=== PATIENT | male | born 1950 | race Hispanic/Latino ===

== ENCOUNTER 2018-08-16 18:49 | Emergency (ER) | payer MEDICARE | END 2018-08-16 21:03 | disposition home or self-care (01) | LOC: EDH 18:49 | DX: S80.812A Abrasion, left lower leg, initial encounter (principal); E78.5 Hyperlipidemia, unspecified; I10 Essential (primary) hypertension; E11.9 Type 2 diabetes mellitus without complications; Z90.49 Acquired absence of other specified parts of digestive tract; W55.03XA Scratched by cat, initial encounter; Y93.89 Activity, other specified; Y92.89 Other specified places as the place of occurrence of the external cause; Y99.8 Other external cause status ==

== ENCOUNTER 2018-08-21 10:00 | Inpatient (IN) | payer MEDICARE ==
[~2018-08-21] VITALS: Ht 165.1 cm; Wt 74.4 kg
[2018-08-21 00:20] VITALS: BP 137/65
[2018-08-21 11:03] LABS: BASOPHILS % (AUTO) 0.3 % (0.0-5.0); EOSINOPHILS % (AUTO) 0.5 % (0.0-8.0); HEMATOCRIT 44.6 % (42-54); LYMPHOCYTES % (AUTO) 14.5 % (21.0-51.0); MEAN CORPUSCULAR HEMOGLOBIN 31.6 pg (27.0-33.0); MEAN CORPUSCULAR HGB CONC 34.5 g/dL (32.0-36.0); MEAN CORPUSCULAR VOLUME 91.7 fL (79-99); MONOCYTES % (AUTO) 10.3 % (3.0-13.0); NEUTROPHILS % (AUTO) 74.4 % (40.0-77.0); PLATELET COUNT (AUTO) 163 K/uL (130-400); RED BLOOD CELL COUNT(AUTO) 4.86 MIL/uL (4.50-6.20); RED CELL DISTRIBUTION WIDTH 12.7 % (11.0-15.5); WHITE BLOOD COUNT (AUTO) 8.1 K/uL (4.8-10.8)
[2018-08-21 11:19] LABS: CREATININE 0.9 mg/dL (0.5-1.5)
[2018-08-21 11:25] LABS: ALBUMIN 3.2 g/dL (3.5-5.0); BILIRUBIN,TOTAL 2.1 mg/dL (0.2-1.0); TOTAL PROTEIN, SERUM 8.1 g/dL (6.0-8.3)
[2018-08-21] MEDS ORDERED: HYDROCODONE/ACETAMINOPHEN 10/325 MG TAB ONE (11:32)
[2018-08-21] MEDS ORDERED: ZOSYN 3.375GM+NS 50ML 50 ML IV ONE (12:29)
[2018-08-21] MEDS ORDERED: SODIUM CHLORIDE 0.9% 100 ML IV ONE (12:29)
[2018-08-21] MEDS ORDERED: INSULIN HUMULIN R 100 UNIT/ML 3ML ONE (13:42)
[2018-08-21] MEDS ORDERED: SODIUM CHLORIDE 0.9% 10 ML VIAL IVP PRN (14:15)
[2018-08-21 19:25] VITALS: BP 142/58
[2018-08-21] MEDS ORDERED: PANT40TA25 PO (19:41)
[2018-08-21] MEDS ORDERED: GLIP10TA9 PO (19:41)
[2018-08-21] MEDS ORDERED: SERT50TA12 PO (19:41)
[2018-08-21] MEDS ORDERED: ATOR10 PO (19:41)
[2018-08-21] MEDS ORDERED: TAMS0.4C32 PO (19:41)
[2018-08-21] MEDS ORDERED: LISI30TA4 PO (19:41)
[2018-08-21] MEDS ORDERED: INVOK100TB PO (19:41)
[2018-08-21] MEDS: ZOSYN 3.375GM+NS 50ML 50 ML IV SCH (19:55)
[2018-08-21] MEDS: ACETAMINOPHEN 325 MG TAB PO PRN (19:56)
[2018-08-21] MEDS: INSULIN R PO SS1 SQ SCH (20:24)
[2018-08-22 00:11] VITALS: BP 137/65
[2018-08-22 04:20] VITALS: BP 128/67
[2018-08-22] MEDS: ZOSYN 3.375GM+NS 50ML 50 ML IV SCH ×3 (04:22→20:49)
[2018-08-22 04:36] LABS: HEMATOCRIT 41.2 % (42-54); MEAN CORPUSCULAR HGB CONC 35.2 g/dL (32.0-36.0); MEAN CORPUSCULAR VOLUME 90.9 fL (79-99); PLATELET COUNT (AUTO) 179 K/uL (130-400); RED BLOOD CELL COUNT(AUTO) 4.53 MIL/uL (4.50-6.20); RED CELL DISTRIBUTION WIDTH 12.5 % (11.0-15.5); WHITE BLOOD COUNT (AUTO) 7.5 K/uL (4.8-10.8)
[2018-08-22 04:52] LABS: CREATININE 0.8 mg/dL (0.5-1.5); POTASSIUM 3.5 mmol/L (3.5-5.1)
[2018-08-22] MEDS: ACETAMINOPHEN 325 MG TAB PO PRN (06:01)
[2018-08-22] MEDS: INSULIN R PO SS1 SQ SCH ×4 (06:03→20:57)
[2018-08-22 08:00] VITALS: BP 122/71
[2018-08-22] MEDS: TRAMADOL HCL 50 MG TABLET PO PRN (11:12)
[2018-08-22 12:00] VITALS: BP 144/68
[2018-08-22 16:00] VITALS: BP 146/68
[2018-08-22] MEDS: HYDROCODONE/ACETAMINOPHEN 7.5/325 MG TAB PO PRN (17:00)
[2018-08-22 19:25] VITALS: BP 134/69
[2018-08-22] MEDS ORDERED: POTASSIUM CHLORIDE 20MEQ/100ML 100 ML IV PRN ×2 (20:15)
[2018-08-22] MEDS ORDERED: POTASSIUM CHLORIDE 20 MEQ ERTAB PO PRN (20:15)
[2018-08-22] MEDS ORDERED: POTASSIUM CHLORIDE 10% ELIXIR 20 MEQ/15 ML UDCUP PO PRN (20:15)
[2018-08-22] MEDS ORDERED: LIDOCAINE HCL-MPF 1% 2ML VIAL IVP PRN (20:15)
[2018-08-22] MEDS: ATORVASTATIN CALCIUM 10 MG TABLET PO SCH (20:50)
[2018-08-23] VITALS (7 sets, daily range): BP systolic 115–140; BP diastolic 57–67
[2018-08-23] MEDS: HYDROCODONE/ACETAMINOPHEN 7.5/325 MG TAB PO PRN ×2 (00:19→08:32)
[2018-08-23] MEDS: ZOSYN 3.375GM+NS 50ML 50 ML IV SCH ×3 (03:52→20:52)
[2018-08-23 04:43] LABS: CREATININE 0.8 mg/dL (0.5-1.5); POTASSIUM 3.7 mmol/L (3.5-5.1)
[2018-08-23] MEDS: INSULIN R PO SS1 SQ SCH ×4 (06:23→20:56)
[2018-08-23] MEDS: PANTOPRAZOLE SODIUM 40 MG TABLET.DR PO SCH (08:33)
[2018-08-23] MEDS: ASPIRIN 325 MG TABLET PO SCH (08:33)
[2018-08-23] MEDS: LISINOPRIL 20 MG TABLET PO SCH (08:34)
[2018-08-23] MEDS: SERTRALINE HCL 50 MG TABLET PO SCH (08:34)
[2018-08-23] MEDS: TAMSULOSIN HCL 0.4 MG CAP.ER.24H PO SCH (08:34)
[2018-08-23] MEDS: GLIPIZIDE 5 MG TABLET PO SCH (08:35)
[2018-08-23] MEDS: **HM** INVOKANA 100MG PO SCH (08:36)
[2018-08-23] MEDS: TRAMADOL HCL 50 MG TABLET PO PRN (12:17)
[2018-08-23] MEDS: ATORVASTATIN CALCIUM 10 MG TABLET PO SCH (20:52)
[2018-08-24 03:00] VITALS: BP 125/59
[2018-08-24] MEDS: ZOSYN 3.375GM+NS 50ML 50 ML IV SCH (03:48)
[2018-08-24 04:01] LABS: EOSINOPHILS % (AUTO) 5.4 % (0.0-8.0); HEMATOCRIT 38.3 % (42-54); LYMPHOCYTES % (AUTO) 19.7 % (21.0-51.0); MEAN CORPUSCULAR HEMOGLOBIN 32.2 pg (27.0-33.0); MEAN CORPUSCULAR HGB CONC 35.6 g/dL (32.0-36.0); MEAN CORPUSCULAR VOLUME 90.4 fL (79-99); NEUTROPHILS % (AUTO) 65.9 % (40.0-77.0); PLATELET COUNT (AUTO) 201 K/uL (130-400); RED BLOOD CELL COUNT(AUTO) 4.24 MIL/uL (4.50-6.20); RED CELL DISTRIBUTION WIDTH 12.5 % (11.0-15.5); WHITE BLOOD COUNT (AUTO) 6.5 K/uL (4.8-10.8)
[2018-08-24 04:08] LABS: CREATININE 0.7 mg/dL (0.5-1.5); POTASSIUM 3.7 mmol/L (3.5-5.1)
[2018-08-24] MEDS: INSULIN R PO SS1 SQ SCH ×2 (06:09→12:24)
[2018-08-24 08:00] VITALS: BP 138/69
[2018-08-24] MEDS: **HM** INVOKANA 100MG PO SCH (09:00)
[2018-08-24] MEDS: HYDROCODONE/ACETAMINOPHEN 7.5/325 MG TAB PO PRN (09:04)
[2018-08-24] MEDS: LISINOPRIL 20 MG TABLET PO SCH (09:05)
[2018-08-24] MEDS: GLIPIZIDE 5 MG TABLET PO SCH (09:06)
[2018-08-24] MEDS: PANTOPRAZOLE SODIUM 40 MG TABLET.DR PO SCH (09:07)
[2018-08-24] MEDS: ASPIRIN 325 MG TABLET PO SCH (09:07)
[2018-08-24] MEDS: SERTRALINE HCL 50 MG TABLET PO SCH (09:07)
[2018-08-24] MEDS: TAMSULOSIN HCL 0.4 MG CAP.ER.24H PO SCH (09:07)
[2018-08-24 12:00] VITALS: BP 99/60
== END 2018-08-24 13:35 | disposition home or self-care (01) | DRG 603 ==
LOC: EDH 10:00 → EDHIP 13:34 → 3BH 17:55
PROVIDERS: ADMIT Family Medicine; ATTEND Family Medicine
PROC: 3E0234Z Introduction of Serum, Toxoid and Vaccine into Muscle, Percutaneous Approach (ICD-10-PCS; principal; 2018-08-24)
DX: L03.116 Cellulitis of left lower limb (principal); E11.65 Type 2 diabetes mellitus with hyperglycemia; I10 Essential (primary) hypertension; E78.5 Hyperlipidemia, unspecified; F41.9 Anxiety disorder, unspecified; R26.2 Difficulty in walking, not elsewhere classified; F32.9 Major depressive disorder, single episode, unspecified; Z87.891 Personal history of nicotine dependence; Z23 Encounter for immunization
CPT/HCPCS: 36415; 73590; 80048; 80053; 82948; 83036; 85025; 85027; 87040; 97039; J1815; J2543; Q2038

== ENCOUNTER 2019-01-18 02:40 | Emergency (ER) | payer MEDICARE ==
[~2019-01-18 02:40] MED LIST: ATOR10 PO; GLIP10TA9 PO; INVOK100TB PO; LISI30TA4 PO; PANT40TA25 PO; SERT50TA12 PO; TAMS0.4C32 PO
[2019-01-18] MEDS ORDERED: TETANUS/DIPHTHERIA TOXOID [ADULT] 0.5 ML VIAL IM ONE (02:56)
[2019-01-18] MEDS ORDERED: HYDROCODONE/ACETAMINOPHEN 5/325 MG TAB ONE (02:56)
[2019-01-18 03:17] LABS: BASOPHILS % (AUTO) 0.8 % (0.0-5.0); EOSINOPHILS % (AUTO) 0.1 % (0.0-8.0); LYMPHOCYTES % (AUTO) 10.8 % (21.0-51.0); MEAN CORPUSCULAR HGB CONC 33.9 g/dL (32.0-36.0); MEAN CORPUSCULAR VOLUME 91.4 fL (79-99); MONOCYTES % (AUTO) 7.4 % (3.0-13.0); NEUTROPHILS % (AUTO) 80.9 % (40.0-77.0); PLATELET COUNT (AUTO) 170 K/uL (130-400); RED BLOOD CELL COUNT(AUTO) 4.82 MIL/uL (4.50-6.20); WHITE BLOOD COUNT (AUTO) 8.1 K/uL (4.8-10.8)
[2019-01-18 03:27] LABS: POTASSIUM 4.1 mmol/L (3.5-5.1)
[2019-01-18 03:31] LABS: ALBUMIN 3.4 g/dL (3.5-5.0); BILIRUBIN,TOTAL 0.9 mg/dL (0.2-1.0); TOTAL PROTEIN, SERUM 7.2 g/dL (6.0-8.3)
[2019-01-18] MEDS ORDERED: KETOROLAC TROMETHAMINE 30MG/ML ONE (03:53)
[2019-01-18] MEDS ORDERED: MORPHINE SULFATE 4 MG/1ML SYG ONE (04:45)
== END 2019-01-18 06:08 | disposition home or self-care (01) ==
LOC: EDH 02:40
DX: S60.512A Abrasion of left hand, initial encounter (principal); S60.511A Abrasion of right hand, initial encounter; S80.219A Abrasion, unspecified knee, initial encounter; R07.89 Other chest pain; I10 Essential (primary) hypertension; F41.9 Anxiety disorder, unspecified; E11.9 Type 2 diabetes mellitus without complications; E78.5 Hyperlipidemia, unspecified; W18.39XA Other fall on same level, initial encounter; Y93.89 Activity, other specified; Y92.098 Other place in other non-institutional residence as the place of occurrence of the external cause; Y99.8 Other external cause status
CPT/HCPCS: 36415; 71045; 80053; 82550; 84484 ×2; 85025; 90471; 90714; 93005 ×2; 96374; 96375; 99284; J1885; J2270

== ENCOUNTER 2019-12-27 09:47 | Emergency (ER) | payer MEDICARE ==
[2019-12-27 10:49] LABS: BASOPHILS % (AUTO) 0.4 % (0.0-5.0); EOSINOPHILS % (AUTO) 1.5 % (0.0-8.0); HEMATOCRIT 39.8 % (42-54); LYMPHOCYTES % (AUTO) 16.3 % (21.0-51.0); MEAN CORPUSCULAR HGB CONC 35.2 g/dL (32.0-36.0); MEAN CORPUSCULAR VOLUME 88.1 fL (79-99); NEUTROPHILS % (AUTO) 73.5 % (40.0-77.0); PLATELET COUNT (AUTO) 162 K/uL (130-400); RED BLOOD CELL COUNT(AUTO) 4.52 MIL/uL (4.50-6.20); RED CELL DISTRIBUTION WIDTH 12.1 % (11.0-15.5)
[2019-12-27] MEDS ORDERED: KETOROLAC TROMETHAMINE 30MG/ML ONE (10:53)
[2019-12-27] MEDS ORDERED: DIAZEPAM 5 MG TABLET ONE (10:53)
[2019-12-27 11:02] LABS: CREATININE 0.7 mg/dL (0.5-1.5); POTASSIUM 3.6 mmol/L (3.5-5.1)
[2019-12-27 11:09] LABS: ALBUMIN 3.3 g/dL (3.5-5.0); BILIRUBIN,DIRECT 0.2 mg/dL (0.0-0.3); BILIRUBIN,TOTAL 1.2 mg/dL (0.2-1.0); TOTAL PROTEIN, SERUM 7.4 g/dL (6.0-8.3)
== END 2019-12-27 14:27 | disposition home or self-care (01) ==
LOC: EDH 09:47
DX: M43.6 Torticollis (principal); F41.9 Anxiety disorder, unspecified; E11.9 Type 2 diabetes mellitus without complications; E78.5 Hyperlipidemia, unspecified; I10 Essential (primary) hypertension; Z90.49 Acquired absence of other specified parts of digestive tract
CPT/HCPCS: 36415; 71045; 80048; 80076; 82550; 84484; 85025; 93005; 96374; 99285; J1885

== ENCOUNTER 2021-01-26 13:00 | Emergency (ER) | payer OTHER, MEDICARE ==
[~2021-01-26 13:00] MED LIST changes: -PANT40TA25 PO; +PANT40TA54 PO; +SERT-439 PO; -SERT50TA12 PO
[2021-01-26 14:03] LABS: BASOPHILS % (AUTO) 0.6 % (0.0-5.0); EOSINOPHILS % (AUTO) 2.7 % (0.0-8.0); LYMPHOCYTES % (AUTO) 18.2 % (21.0-51.0); MEAN CORPUSCULAR HEMOGLOBIN 30.2 pg (27.0-33.0); MEAN CORPUSCULAR VOLUME 88.8 fL (79-99); MONOCYTES % (AUTO) 5.5 % (3.0-13.0); NEUTROPHILS % (AUTO) 72.7 % (40.0-77.0); PLATELET COUNT (AUTO) 224 K/uL (130-400); RED BLOOD CELL COUNT(AUTO) 4.84 MIL/uL (4.50-6.20); RED CELL DISTRIBUTION WIDTH 12.4 % (11.0-15.5); WHITE BLOOD COUNT (AUTO) 7.1 K/uL (4.8-10.8)
[2021-01-26 14:08] LABS: PROTHROMBIN TIME 10.9 SEC (9.6-11.6)
[2021-01-26 14:10] LABS: PARTIAL THROMBOPLASTIN TIME 27.8 SEC (26.3-35.5)
[2021-01-26] MEDS ORDERED: ASPIRIN 325 MG TABLET ONE (14:11)
[2021-01-26 14:12] LABS: ALBUMIN 3.4 g/dL (3.5-5.0); BILIRUBIN,TOTAL 0.4 mg/dL (0.2-1.0); CREATININE 0.8 mg/dL (0.5-1.5); TOTAL PROTEIN, SERUM 7.4 g/dL (6.0-8.3)
[2021-01-26 14:21] LABS: B-TYPE NATRIURETIC PEPTIDE 17 pg/mL (0-100)
[2021-01-26 14:26] LABS: APPEARANCE,URINE Clear (CLEAR); BILIRUBIN,URINE Negative (NEGATIVE); COLOR,URINE Yellow (YELLOW); GLUCOSE, URINE (UA) Negative (NEGATIVE); KETONES,URINE Negative (NEGATIVE); LEUKOCYTE ESTERASE ,URINE Negative (NEGATIVE); NITRATE,URINE Negative (NEGATIVE); OCCULT BLOOD,URINE Negative (NEGATIVE); PH,URINE 6.5 (5.0-8.0); PROTEIN,URINE Negative (NEGATIVE); UROBILINOGEN,URINE 0.2 mg/dL (0.2-1.0)
== END 2021-01-26 17:17 | disposition home or self-care (01) ==
LOC: EDH 13:00
DX: S09.90XA Unspecified injury of head, initial encounter (principal); I95.1 Orthostatic hypotension; I10 Essential (primary) hypertension; E78.5 Hyperlipidemia, unspecified; E11.9 Type 2 diabetes mellitus without complications; F41.9 Anxiety disorder, unspecified; Z72.0 Tobacco use; Z90.49 Acquired absence of other specified parts of digestive tract; W18.39XA Other fall on same level, initial encounter; Y93.89 Activity, other specified; Y92.89 Other specified places as the place of occurrence of the external cause; Y99.8 Other external cause status
CPT/HCPCS: 36415; 70450; 71045; 72125; 80053; 81003; 82550; 83880; 84484; 85025; 85610; 85730; 93005

== ENCOUNTER 2021-02-27 19:58 | Emergency (ER) | payer OTHER, MEDICARE ==
[2021-02-27] MEDS ORDERED: MECLIZINE HCL 25 MG TABLET ONE (20:17)
[2021-02-27 20:32] LABS: BASOPHILS % (AUTO) 0.5 % (0.0-5.0); HEMATOCRIT 42.4 % (42-54); LYMPHOCYTES % (AUTO) 23.6 % (21.0-51.0); MEAN CORPUSCULAR HEMOGLOBIN 30.9 pg (27.0-33.0); MEAN CORPUSCULAR HGB CONC 35.6 g/dL (32.0-36.0); MEAN CORPUSCULAR VOLUME 86.9 fL (79-99); MONOCYTES % (AUTO) 6.7 % (3.0-13.0); NEUTROPHILS % (AUTO) 65.9 % (40.0-77.0); PLATELET COUNT (AUTO) 210 K/uL (130-400); RED BLOOD CELL COUNT(AUTO) 4.88 MIL/uL (4.50-6.20); RED CELL DISTRIBUTION WIDTH 12.6 % (11.0-15.5); WHITE BLOOD COUNT (AUTO) 7.9 K/uL (4.8-10.8)
[2021-02-27 20:42] LABS: CREATININE 0.8 mg/dL (0.5-1.5); POTASSIUM 3.7 mmol/L (3.5-5.1)
[2021-02-27 20:47] LABS: ALBUMIN 3.4 g/dL (3.5-5.0); BILIRUBIN,TOTAL 0.6 mg/dL (0.2-1.0); TOTAL PROTEIN, SERUM 7.6 g/dL (6.0-8.3)
[2021-02-27 20:52] LABS: INR 1.06 (0.85-1.15); PROTHROMBIN TIME 11.5 SEC (9.6-11.6)
[2021-02-27 20:53] LABS: PARTIAL THROMBOPLASTIN TIME 27.1 SEC (26.3-35.5)
[2021-02-27 21:11] LABS: APPEARANCE,URINE Clear (CLEAR); BILIRUBIN,URINE Negative (NEGATIVE); COLOR,URINE Yellow (YELLOW); GLUCOSE, URINE (UA) >=1000 mg/dL (NEGATIVE); KETONES,URINE Trace mg/dL (NEGATIVE); LEUKOCYTE ESTERASE ,URINE Negative (NEGATIVE); NITRATE,URINE Negative (NEGATIVE); OCCULT BLOOD,URINE Negative (NEGATIVE); PROTEIN,URINE Trace mg/dL (NEGATIVE)
[2021-02-27 21:39] LABS: BACTERIA,URINE None Seen /HPF (None Seen); RBC,URINE None Seen /HPF (0-1); WBC,URINE None Seen /HPF (0-1)
== END 2021-02-27 21:51 | disposition home or self-care (01) ==
LOC: EDH 19:58
DX: R42 Dizziness and giddiness (principal); E11.65 Type 2 diabetes mellitus with hyperglycemia; E78.5 Hyperlipidemia, unspecified; I10 Essential (primary) hypertension; Z90.49 Acquired absence of other specified parts of digestive tract
CPT/HCPCS: 36415; 70450; 71045; 80053; 81001; 84484; 85025; 85610; 85730; 93005